=== PATIENT | male | born 1955 ===

== ENCOUNTER 2017-08-31 12:16 | Inpatient (IN) | payer MEDICAID, OTHER ==
[2017-08-31 12:16] VITALS: BMI 31.9
--- NOTE | 2017-08-31 13:30 | C.PDOC ---
History Of Present Illness 62 yo male come in to ED request heroin detox . Pt reports, using heroin daily for " many years'. Otherwise, pt denies any other active physical activity. Pt denies suicidal or homocidal ideation or attempts. Ambulate to Ed for evaluation , not in any apparent distress. Time Seen by Provider: 08/31/17 12:53 Chief Complaint (Nursing): Substance Abuse History Per: Patient Past Medical History Reviewed: Historical Data, Nursing Documentation, Vital Signs Vital Signs: Last Vital Signs Temp 98.2 F 08/31/17 12:35 Pulse 88 08/31/17 16:50 Resp 18 08/31/17 16:50 BP 137/73 08/31/17 16:50 Pulse Ox 99 08/31/17 16:50 - Medical History PMH: Back Problems, CAD, HTN, Hypercholesterolemia, Hyperlipidemia Denies: Diabetes, Hepatitis, HIV, Chronic Kidney Disease, Seizures, Sexually Transmitted Disease Surgical History: Coronary Stent (2008 (had c/o of chest pain)) - [facility] EXERCISE TRMT MUSCULOSK LOW BACK/LE W ASSIST EQUIP (10/25/16) GAIT TRAINING/AMBULAT TREATMENT USING ASSIST EQUIPMENT (10/25/16) HOME MANAGEMENT TREATMENT (10/25/16) WHEELCHAIR MOBILITY TREATMENT USING ASSIST EQUIPMENT (10/25/16) Family History: States: No Known Family Hx - Social History Hx Alcohol Use: No Hx Substance Use: Yes - Immunization History Hx Tetanus Toxoid Vaccination: Yes Hx Influenza Vaccination: Yes Hx Pneumococcal Vaccination: Yes Review Of Systems Except As Marked, All Systems Reviewed And Found Negative. Constitutional: Negative for: Fever, Chills Eyes: Negative for: Vision Change ENT: Negative for: Throat Pain Cardiovascular: Negative for: Chest Pain, Palpitations, Light Headedness Respiratory: Negative for: Cough, Shortness of Breath, Wheezing Gastrointestinal: Negative for: Nausea, Vomiting, Abdominal Pain, Diarrhea Skin: Negative for: Rash Neurological: Negative for: Weakness, Numbness, Altered Mental Status, Dizziness Psych: Negative for: Suicidal ideation Physical Exam - Physical Exam Appears: Well, Non-toxic, No Acute Distress Skin: Normal Color, Warm, Dry, No Rash Head: Atraumatic, Normacephalic Eye(s): bilateral: PERRL Nose: Normal, No Discharge Oral Mucosa: Moist Throat: No Drooling Neck: Trachea Midline, No Midline Cervical Tenderness, No Paracervical Tenderness, No Step Off Deformity, Supple Cardiovascular: Rhythm Regular, No JVD Respiratory: No Decreased Breath Sounds, No Accessory Muscle Use Gastrointestinal/Abdominal: Soft, No Tenderness, No Distention, No Guarding Back: No CVA Tenderness, No Vertebral Tenderness Extremity: Normal ROM, No Pedal Edema, No Deformity, No Swelling Neurological/Psych: Oriented x3, Normal Speech ED Course And Treatment - Laboratory Results Result Diagrams: 08/31/17 14:33 08/31/17 14:33 Lab Interpretation: No Changes Compared To Prior Results O2 Sat by Pulse Oximetry: 95 Pulse Ox Interpretation: Normal Progress Note: Pt was OBS in ED for 4 hours and remained stable. Blood work review and appears baseline. Pt is medically cleared for crisis evaluation. After pt was seen by mat worker Luz , case was discussed with psych-on- call and admission arranged to detox floor with Dx: Opioid dependance, hyperglycemia Hx of NIDDM. Disposition - Disposition Disposition: HOSPITALIZED Disposition Time: 16:32 Condition: STABLE Forms: [facility] (Ukrainian) - Clinical Impression Clinical Impression: DM type 2 (diabetes mellitus, type 2), Opioid dependence
[2017-08-31 14:36] LABS: BASO # 0.1 K/uL (0.0-0.2); BASO % 0.5 % (0.0-2.0); EOS # 0.5 K/uL (0.0-0.7); HEMATOCRIT 39.5 % (35.0-51.0); LYMPH # 1.8 K/uL (1.0-4.3); MEAN CELL VOLUME 83.1 fL (80.0-94.0); MEAN CORPUSCULAR HEMOGLOBIN 27.1 pg (27.0-31.0); MEAN CORPUSCULAR HGB CONC 32.7 g/dL (33.0-37.0); MEAN PLATELET VOLUME 9.4 fL (7.2-11.7); MONO # 0.7 K/uL (0.0-0.8); MONO % 6.7 % (0.0-10.0); RED CELL DISTRIBUTION WIDTH 15.8 % (11.5-14.5); WHITE BLOOD COUNT 10.1 K/uL (4.8-10.8)
[2017-08-31 14:39] LABS: RBC URINE < 1 /hpf (0-3); URINE BILIRUBIN NEGATIVE (NEGATIVE); URINE BLOOD NEGATIVE (NEGATIVE); URINE COLOR Straw (YELLOW); URINE GLUCOSE (UA) 3+ mg/dL (Normal); URINE KETONE NEGATIVE (NEGATIVE); URINE LEUKOCYTE ESTERASE NEG Leu/uL (Negative); URINE PROTEIN NEGATIVE (NEGATIVE); URINE UROBILINOGEN NORMAL mg/dL (0.2-1.0); WBC URINE < 1 /hpf (0-5)
[2017-08-31 14:49] LABS: ALB/GLOB RATIO 1.3 (1.0-2.1); ALCOHOL SERUM < 10 mg/dl (0-10); ALKALINE PHOSPHATASE 110 U/L (38-126); ALT/SGPT 54 U/L (21-72); AST/SGOT 48 U/L (17-59); BILIRUBIN,TOTAL 0.5 mg/dL (0.2-1.3); BLOOD UREA NITROGEN 14 mg/dL (9-20); CALCIUM 8.3 mg/dl (8.6-10.4); CARBON DIOXIDE 29 mmol/L (22-30); CHLORIDE 95 mmol/L (98-107); GFR AFRICAN-AMERICAN > 60; GLUCOSE,RANDOM 305 mg/dL (75-110); POTASSIUM 4.7 mmol/L (3.6-5.2); SODIUM 131 mmol/L (132-148); TOTAL PROTEIN 6.6 g/dL (6.3-8.3)
[2017-08-31] MEDS ORDERED: Lactated Ringer's 1,000 ML IV ONE (14:58)
[2017-08-31] MEDS ORDERED: Lactated Ringer's 0 ML ONE (15:27)
[2017-08-31] MEDS ORDERED: Sodium Chloride 0.9% 1,000 ML ONE (15:36)
[2017-08-31] MEDS ORDERED: Sodium Chloride 0.9% 1,000 ML IV ONE (16:35)
--- NOTE | 2017-08-31 18:48 | PCM.BM ---
<Jerri Gibson - Last Filed: 08/31/17 18:46> Treatment Plan Problems - Problems identified on initial assessmt substance dependence Date Initiated: 08/31/17 Time Initiated: 18:15 Assessment reference: NA Status: Active Treatment assets and liabiliti Patient Assests: cooperative, ADL independent, negotiates basic needs Patient Liabilities: live alone, substance abuse, medical problems - Milieu Protocol Maintain good personal hygiene: daily Encourage regular showers, daily Remind patient to perform daily oral care, daily Assist patient to perform ADL's Conduct patient checks and document Observation sheet: Q15 minutes Maintain personal safety: every shift Educate patient to report safety concerns to staff, every shift Monitor environment for contraband/sharps Medication safety: Monitor for expected outcome, potential side effects: every shift, Assess barriers to learning: every shift, Assess readiness for medication education: every shift <[place] - Last Filed: 09/01/17 17:09> - Diagnosis (1) Opioid use disorder, severe, dependence Status: Acute Interventions: 09/01/17 17:09 * Assess 7x/week regarding severity of withdrawal * Educate regarding risks, benefits, side effects and alternatives of medications * Use Motivational Interviewing for abstinence * Use CBT for relapse prevention * Medication management for withdrawal symptoms * Encourage medication assisted treatment *
--- NOTE | 2017-08-31 23:16 | CP.PCM.CON ---
<Kris Collins - Last Filed: 08/31/17 23:26> History of Present Illness - History of Present Illness History of Present Illness: Medicine consult note for Dr. Bryant Reason for consult: Diabetes This is a 62 year old male with PMHx diabetes, hypertension, CVA in 2016 with no residual symptoms who presented for detox from heroin. Patient consumes 2 bundles of heroin intranasally with last use on Saturday. Patient states that the last time he took his home medications was also on Saturday. Patient is complaining of his withdrawal symptoms including generalized body aches, one episode of loose stools, and rhinorrhea. Patient is very uncomfortable and unable to sleep due to his withdrawal. He received methadone 10 mg earlier this evening. PMHx: DM, HTN, CVA PSHx: Denies Allergies: NKDA Social: Current smoker 10 cigarettes daily, does not remember when he started, but states "for long time". Two bundles of heroin daily intranasally. No other drug history. Home meds: Gabapentin 300 mg PO BID, Metformin 1000 mg PO BID, ASA 81 mg PO daily, Simvastatin 40 mg PO daily, Atenolol 50 mg PO HS PMD: Dr. Orta in [place] Review of Systems - Constitutional Constitutional: Malaise. absent: Chills, Fever - EENT Eyes: absent: Change in Vision Ears: absent: Decreased Hearing Nose/Mouth/Throat: Other (rhinorrhea) - Cardiovascular Cardiovascular: absent: Chest Pain - Respiratory Respiratory: absent: Dyspnea - Gastrointestinal Gastrointestinal: Loose Stools. absent: Abdominal Pain - Genitourinary Genitourinary: absent: Dysuria - Musculoskeletal Musculoskeletal: Back Pain (chronic), Other (generalized body aches) - Neurological Neurological: absent: Weakness - Psychiatric Psychiatric: Anxiety - Endocrine Endocrine: absent: Palpitations Past Patient History - Past Medical History & Family History Past Medical History?: Yes - Past Social History Smoking Status: Heavy Smoker > 10 Cigarettes Daily - CARDIAC Hx Hypercholesterolemia: Yes Hx Hypertension: Yes - PULMONARY Hx Respiratory Disorders: No - NEUROLOGICAL Hx Seizures: No - HEENT Hx HEENT Problems: Yes (c/o of double vision) Other/Comment: - hx. of right sided nystagmus - RENAL Hx Chronic Kidney Disease: No - ENDOCRINE/METABOLIC Hx Diabetes Mellitus Type 2: Yes - HEMATOLOGICAL/ONCOLOGICAL Hx Human Immunodeficiency Virus (HIV): No - INTEGUMENTARY Hx Dermatological Problems: No - MUSCULOSKELETAL/RHEUMATOLOGICAL Hx Falls: Yes - GASTROINTESTINAL Hx Gastrointestinal Disorders: No - GENITOURINARY/GYNECOLOGICAL Hx Sexually Transmitted Disorders: No - PSYCHIATRIC Hx Substance Use: Yes - SURGICAL HISTORY Hx Coronary Stent: Yes (2008 (had c/o of chest pain)) - ANESTHESIA Hx Anesthesia: Yes Hx Anesthesia Reactions: No Hx Malignant Hyperthermia: No Meds Allergies/Adverse Reactions: Allergies Allergy/AdvReac Type Severity Reaction Status Date / Time No Known Allergies Allergy Verified 05/29/16 10:34 - Medications Medications: Current Medications Aspirin (Aspirin Chewable) 81 mg PO DAILY PENNY Atenolol (Tenormin) 50 mg PO HS PENNY Clonidine HCl (Catapres) 0.1 mg PO Q8 PRN PRN Reason: COWS Score More or Equal to 5 Last Admin: 08/31/17 21:46 Dose: 0.1 mg Dicyclomine HCl (Bentyl) 10 mg PO Q6 PRN PRN Reason: Muscle spasm Gabapentin (Neurontin) 300 mg PO BID PENNY Hydroxyzine HCl (Atarax) 25 mg PO Q6 PRN PRN Reason: Anxiety Last Admin: 08/31/17 21:47 Dose: 25 mg Ibuprofen (Motrin Tab) 400 mg PO Q6H PRN PRN Reason: Pain, moderate (4-7) Insulin Human Regular (Novolin R) 0 unit SC ACHS PENNY PRN Reason: Protocol Loperamide HCl (Imodium) 2 mg PO Q8 PRN PRN Reason: Diarrhea Metformin HCl (Glucophage) 1,000 mg PO BID PENNY Ondansetron HCl (Zofran Tab) 4 mg PO Q8 PRN PRN Reason: Nausea/Vomiting Pneumococcal Polyvalent Vaccine (Pneumovax 23 Vaccine) 0.5 ml IM .ONCE ONE Stop: 09/03/17 10:01 Trazodone HCl (Desyrel) 50 mg PO HS PRN PRN Reason: Insomnia Last Admin: 08/31/17 21:46 Dose: 50 mg Physical Exam - Constitutional Appears: No Acute Distress - Head Exam Head Exam: ATRAUMATIC, NORMOCEPHALIC - Eye Exam Eye Exam: EOMI, Normal appearance - ENT Exam ENT Exam: Mucous Membranes Moist - Respiratory Exam Respiratory Exam: Clear to Auscultation Bilateral. absent: Rales, Rhonchi, Wheezes - Cardiovascular Exam Cardiovascular Exam: REGULAR RHYTHM, +S1, +S2 - GI/Abdominal Exam GI & Abdominal Exam: Distended, Hyperactive Bowel Sounds, Soft. absent: Guarding, Tenderness - Extremities Exam Extremities exam: Positive for: pedal pulses present - Neurological Exam Neurological exam: Alert, Oriented x3 - Psychiatric Exam Psychiatric exam: Anxious - Skin Skin Exam: Dry, Intact, Warm Results - Vital Signs Recent Vital Signs: Last Vital Signs Temp 99.0 F 08/31/17 20:20 Pulse 88 08/31/17 20:20 Resp 18 08/31/17 20:20 BP 151/79 H 08/31/17 20:20 Pulse Ox 92 L 08/31/17 20:20 - Labs Result Diagrams: 08/31/17 14:33 08/31/17 14:33 Labs: Laboratory Results - last 24 hr 08/31/17 08/31/17 08/31/17 14:33 14:33 14:33 WBC 10.1 RBC 4.76 Hgb 12.9 Hct 39.5 MCV 83.1 D MCH 27.1 MCHC 32.7 L RDW 15.8 H Plt Count 244 MPV 9.4 Neut % (Auto) 69.8 Lymph % (Auto) 18.0 L [place] % (Auto) 6.7 Eos % (Auto) 5.0 H Baso % (Auto) 0.5 Neut # 7.0 Lymph # 1.8 [place] # 0.7 Eos # 0.5 Baso # 0.1 Sodium 131 L Potassium 4.7 Chloride 95 L Carbon Dioxide 29 Anion Gap 12 BUN 14 Creatinine 0.8 Est GFR ( Amer) > 60 Est GFR (Non-Af Amer) > 60 POC Glucose (mg/dL) Random Glucose 305 H Calcium 8.3 L Total Bilirubin 0.5 AST 48 ALT 54 Alkaline Phosphatase 110 Total Protein 6.6 Albumin 3.7 Globulin 2.9 Albumin/Globulin Ratio 1.3 Urine Color Straw Urine Clarity Clear Urine pH 6.0 Ur Specific [place] 1.012 Urine Protein Negative Urine Glucose (UA) 3+ H Urine Ketones Negative Urine Blood Negative Urine Nitrate Negative Urine Bilirubin Negative Urine Urobilinogen Normal Ur Leukocyte Esterase Neg Urine WBC (Auto) < 1 Urine RBC (Auto) < 1 Urine Opiates Screen Urine Methadone Screen Ur Barbiturates Screen Ur Phencyclidine Scrn Ur Amphetamines Screen U Benzodiazepines Scrn U Oth Cocaine Metabols U Cannabinoids Screen Alcohol, Quantitative < 10 08/31/17 08/31/17 14:33 17:07 WBC RBC Hgb Hct MCV MCH MCHC RDW Plt Count MPV Neut % (Auto) Lymph % (Auto) [place] % (Auto) Eos % (Auto) Baso % (Auto) Neut # Lymph # [place] # Eos # Baso # Sodium Potassium Chloride Carbon Dioxide Anion Gap BUN Creatinine Est GFR ( Amer) Est GFR (Non-Af Amer) POC Glucose (mg/dL) 219 H Random Glucose Calcium Total Bilirubin AST ALT Alkaline Phosphatase Total Protein Albumin Globulin Albumin/Globulin Ratio Urine Color Urine Clarity Urine pH Ur Specific [place] Urine Protein Urine Glucose (UA) Urine Ketones Urine Blood Urine Nitrate Urine Bilirubin Urine Urobilinogen Ur Leukocyte Esterase Urine WBC (Auto) Urine RBC (Auto) Urine Opiates Screen Positive H Urine Methadone Screen Negative Ur Barbiturates Screen Negative Ur Phencyclidine Scrn Negative Ur Amphetamines Screen Negative U Benzodiazepines Scrn Negative U Oth Cocaine Metabols Negative U Cannabinoids Screen Negative Alcohol, Quantitative Assessment & Plan - Assessment and Plan (Free Text) Plan: History of Diabetes continued home Metformin 1000 mg PO BID added medium dose Regular ISS coverage f/u Hemoglobin A1c History of Hypertension continued home Atenolol 50 mg PO HS His pressure may also be elevated due to his withdrawal symptoms and subsequent pain from it. Psychiatry team to manage detox. 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 Annette Collins PGY-1 <Tate Bryant P - Last Filed: 09/01/17 06:14> Meds - Medications Medications: Current Medications Aspirin (Aspirin Chewable) 81 mg PO DAILY PENNY Atenolol (Tenormin) 50 mg PO HS PENNY Clonidine HCl (Catapres) 0.1 mg PO Q8 PRN PRN Reason: COWS Score More or Equal to 5 Last Admin: 08/31/17 21:46 Dose: 0.1 mg Dicyclomine HCl (Bentyl) 10 mg PO Q6 PRN PRN Reason: Muscle spasm Gabapentin (Neurontin) 300 mg PO BID PENNY Hydroxyzine HCl (Atarax) 25 mg PO Q6 PRN PRN Reason: Anxiety Last Admin: 08/31/17 21:47 Dose: 25 mg Ibuprofen (Motrin Tab) 400 mg PO Q6H PRN PRN Reason: Pain, moderate (4-7) Insulin Human Regular (Novolin R) 0 unit SC ACHS PENNY PRN Reason: Protocol Loperamide HCl (Imodium) 2 mg PO Q8 PRN PRN Reason: Diarrhea Metformin HCl (Glucophage) 1,000 mg PO BID PENNY Ondansetron HCl (Zofran Tab) 4 mg PO Q8 PRN PRN Reason: Nausea/Vomiting Pneumococcal Polyvalent Vaccine (Pneumovax 23 Vaccine) 0.5 ml IM .ONCE ONE Stop: 09/03/17 10:01 Rosuvastatin Calcium (Crestor) 10 mg PO HS PENNY Trazodone HCl (Desyrel) 50 mg PO HS PRN PRN Reason: Insomnia Last Admin: 08/31/17 21:46 Dose: 50 mg Results - Vital Signs Recent Vital Signs: Last Vital Signs Temp 99.0 F 08/31/17 20:20 Pulse 88 08/31/17 20:20 Resp 18 08/31/17 20:20 BP 151/79 H 08/31/17 20:20 Pulse Ox 92 L 08/31/17 20:20 - Labs Result Diagrams: 08/31/17 14:33 08/31/17 14:33 Labs: Laboratory Results - last 24 hr 08/31/17 08/31/17 08/31/17 14:33 14:33 14:33 WBC 10.1 RBC 4.76 Hgb 12.9 Hct 39.5 MCV 83.1 D MCH 27.1 MCHC 32.7 L RDW 15.8 H Plt Count 244 MPV 9.4 Neut % (Auto) 69.8 Lymph % (Auto) 18.0 L [place] % (Auto) 6.7 Eos % (Auto) 5.0 H Baso % (Auto) 0.5 Neut # 7.0 Lymph # 1.8 [place] # 0.7 Eos # 0.5 Baso # 0.1 Sodium 131 L Potassium 4.7 Chloride 95 L Carbon Dioxide 29 Anion Gap 12 BUN 14 Creatinine 0.8 Est GFR ( Amer) > 60 Est GFR (Non-Af Amer) > 60 POC Glucose (mg/dL) Random Glucose 305 H Calcium 8.3 L Total Bilirubin 0.5 AST 48 ALT 54 Alkaline Phosphatase 110 Total Protein 6.6 Albumin 3.7 Globulin 2.9 Albumin/Globulin Ratio 1.3 Urine Color Straw Urine Clarity Clear Urine pH 6.0 Ur Specific [place] 1.012 Urine Protein Negative Urine Glucose (UA) 3+ H Urine Ketones Negative Urine Blood Negative Urine Nitrate Negative Urine Bilirubin Negative Urine Urobilinogen Normal Ur Leukocyte Esterase Neg Urine WBC (Auto) < 1 Urine RBC (Auto) < 1 Urine Opiates Screen Urine Methadone Screen Ur Barbiturates Screen Ur Phencyclidine Scrn Ur Amphetamines Screen U Benzodiazepines Scrn U Oth Cocaine Metabols U Cannabinoids Screen Alcohol, Quantitative < 10 08/31/17 08/31/17 14:33 17:07 WBC RBC Hgb Hct MCV MCH MCHC RDW Plt Count MPV Neut % (Auto) Lymph % (Auto) [place] % (Auto) Eos % (Auto) Baso % (Auto) Neut # Lymph # [place] # Eos # Baso # Sodium Potassium Chloride Carbon Dioxide Anion Gap BUN Creatinine Est GFR ( Amer) Est GFR (Non-Af Amer) POC Glucose (mg/dL) 219 H Random Glucose Calcium Total Bilirubin AST ALT Alkaline Phosphatase Total Protein Albumin Globulin Albumin/Globulin Ratio Urine Color Urine Clarity Urine pH Ur Specific [place] Urine Protein Urine Glucose (UA) Urine Ketones Urine Blood Urine Nitrate Urine Bilirubin Urine Urobilinogen Ur Leukocyte Esterase Urine WBC (Auto) Urine RBC (Auto) Urine Opiates Screen Positive H Urine Methadone Screen Negative Ur Barbiturates Screen Negative Ur Phencyclidine Scrn Negative Ur Amphetamines Screen Negative U Benzodiazepines Scrn Negative U Oth Cocaine Metabols Negative U Cannabinoids Screen Negative Alcohol, Quantitative Attending/Attestation - Attestation I have personally seen and examined this patient.: Yes I have fully participated in the care of the patient.: Yes I have reviewed all pertinent clinical information: Yes Notes (Text): Assessment Patient here for detox for heroin withdrawal H/o CAD, CVA without residual H/o NIDDM H/o chronic back pain, djd of spine Plan Continue home bp meds Hemoglobin a1c Insulin sliding scale medium Heroin withdrawal management as per detox
[2017-09-01] MEDS: (Novolin R) Insulin Human Regular 100 units/ml vial SC SCH ×4 (08:10→21:53)
--- NOTE | 2017-09-01 09:44 | PCM.PSYCH ---
Initial Psychiatric Evaluation - Initial Psychiatric Evaluation Type of Admission: Voluntary Legal Status: Capacity Chief Complaint (in patient's own words): "Not well!" History of Present Illness and Precipitating Events: The pt is seen, chart reviewed and case discussed He is a 62 yo LM, single with 3 adult children, lives alone, on SSI He uses 25 bags intranasally "for years" Denies all other drugs and alcohol but smokes 10/d cig This is his first detox he claims, and came here bc his son was here recently and he recommended (of note his son AMA'ed and this patient also threaten AMA this afternoon but then agreed to stay with reassurance) Past psych hx: Denies Family psych hx: So used heroin too Medical hx: DM, HTN and scoliosis Current Medications: Active Medications Generic Name Dose Route Start Last Admin Trade Name Freq PRN Reason Stop Dose Admin Aspirin 81 mg 09/01/17 10:00 Aspirin Chewable PO DAILY PENNY Atenolol 50 mg 09/01/17 10:00 Tenormin PO DAILY PENNY Clonidine HCl 0.1 mg 08/31/17 18:56 08/31/17 21:46 Catapres PO 0.1 mg Q8 PRN Administration COWS Score More or Equal to 5 Dicyclomine HCl 10 mg 08/31/17 18:56 Bentyl PO Q6 PRN Muscle spasm Gabapentin 300 mg 09/01/17 10:00 Neurontin PO BID PENNY Hydroxyzine HCl 25 mg 08/31/17 18:56 08/31/17 21:47 Atarax PO 25 mg Q6 PRN Administration Anxiety Ibuprofen 400 mg 08/31/17 19:10 Motrin Tab PO Q6H PRN Pain, moderate (4-7) Insulin Human Regular 0 unit 09/01/17 07:30 09/01/17 08:10 Novolin R SC 6 unit ACHS PENNY Administration Protocol Loperamide HCl 2 mg 08/31/17 18:56 Imodium PO Q8 PRN Diarrhea Metformin HCl 1,000 mg 09/01/17 10:00 Glucophage PO BID PENNY Methadone HCl 20 mg 09/01/17 10:00 Methadone PO 09/05/17 09:59 Q24H PENNY Taper Ondansetron HCl 4 mg 08/31/17 18:56 Zofran Tab PO Q8 PRN Nausea/Vomiting Pneumococcal Polyvalent Vaccine 0.5 ml 09/03/17 10:00 Pneumovax 23 Vaccine IM 09/03/17 10:01 .ONCE ONE Quetiapine Fumarate 50 mg 09/01/17 22:00 Seroquel PO HS PENNY Rosuvastatin Calcium 10 mg 09/01/17 22:00 Crestor PO HS PENNY Trazodone HCl 100 mg 09/01/17 09:19 Desyrel PO HS PRN Insomnia Past Psychiatric History - Past Psychiatric History Previous Treatment History: None Pertinent Medical Hx (Current Medical&Sleep Prob, Allergies): Allergies Allergy/AdvReac Type Severity Reaction Status Date / Time No Known Allergies Allergy Verified 05/29/16 10:34 Atenolol [Tenormin] 50 mg PO HS 12/12/15 Simvastatin 40 mg PO HS 12/12/15 Aspirin [Ecotrin] 81 mg PO DAILY #30 tabec 11/08/16 Gabapentin [Neurontin] 300 mg PO BID #60 cap 11/08/16 metFORMIN [glucOPHAGE] 500 mg PO DAILY #30 tab 11/08/16 Acetaminophen [Tylenol 325mg tab] 2 tab PO QID PRN #30 tab 08/15/17 Review of Systems - Psychiatric Psychiatric: Abnormal Sleep Pattern, Anxiety, Irritability. absent: Hallucinations, Homicidal Ideation, Suicidal Ideation Mental Status Examination - Personal Presentation Personal Presentation: Looks older than stated age - Affect Affect: Constricted - Motor Activity Motor Activity: Psychomotor Agitation (mild) - Reliability in Providing Information Reliability in Providing Information: Fair - Speech Speech: Organized - Mood Mood: Anxious - Formal Thought Process Formal Thought Process: No Impairment - Cognitive Functions Orientation: Person, Place, Situation, Time Sensorium: Alert Attention/Concentration: Easily distracted Abstract Thinking: [place] Estimate of Intelligence: Below average Judgement: Intact, as evidence by: Insight regarding need for hospitalization Memory: Recent intact, as evidence by: Ability to recall events of the day, Remote intact, as evidenced by: Abilit to recall sig. life events - Risk Risk: Diminished functioning - Strength & Assets Inventory Strength & Assets Inventory: Family support, Cooperative - Limitations Limitations: Living alone DSM 5 DX - DSM 5 DSM 5 Diagnosis: Opioid withdrawal Opioid use d/o - severe - Recommended/Plan of Treatment Treatment Recommendations and Plan of Treatment: Methadone detox As needed medications, incl. ativan Gabapentin for augmentation Attend groups and activities Supportive therapy and psychoeducation NC for abstinence CBT for relapse prevention Encourage MAT Refer to rehab or IOP Attend self-help groups as well 34 min Projected ELOS: 4-5 days Prognosis: good w treatment - Smoking Cessation Smoking Cessation Initiated: Yes
--- NOTE | 2017-09-01 10:37 | CP.PCM.PN ---
<Khushi Perez - Last Filed: 09/01/17 16:34> Subjective - Date & Time of Evaluation Date of Evaluation: 09/01/17 Time of Evaluation: 10:37 - Subjective Subjective: Medicine Progress Note: Patient seen and examined at bedside. Per nursing no acute events overnight. Patient is currently detoxing from heroin. Patient states that he was diagnosed with diabetes last year and is complaint with his medications. States that his blood sugars at home range from 120-300s. At this time he offers no complaints, he reports having increased urinary frequency. Denies headaches, dizziness, cp, palpitations, sob, abdominal pain, changes in bowel habits. Objective - Vital Signs/Intake and Output Vital Signs (last 24 hours): Temp Pulse Resp BP Pulse Ox 98.4 F 71 18 138/83 95 09/01/17 06:21 09/01/17 06:21 09/01/17 06:21 09/01/17 06:21 09/01/17 06:21 - Medications Medications: Current Medications Aspirin (Aspirin Chewable) 81 mg PO DAILY [facility] Last Admin: 09/01/17 10:12 Dose: 81 mg Atenolol (Tenormin) 50 mg PO DAILY [facility] Last Admin: 09/01/17 10:13 Dose: 50 mg Clonidine HCl (Catapres) 0.1 mg PO Q8 PRN PRN Reason: COWS Score More or Equal to 5 Last Admin: 08/31/17 21:46 Dose: 0.1 mg Dicyclomine HCl (Bentyl) 10 mg PO Q6 PRN PRN Reason: Muscle spasm Gabapentin (Neurontin) 300 mg PO BID [facility] Last Admin: 09/01/17 10:13 Dose: 300 mg Hydroxyzine HCl (Atarax) 25 mg PO Q6 PRN PRN Reason: Anxiety Last Admin: 08/31/17 21:47 Dose: 25 mg Ibuprofen (Motrin Tab) 400 mg PO Q6H PRN PRN Reason: Pain, moderate (4-7) Insulin Human Regular (Novolin R) 0 unit SC ACHS [facility] PRN Reason: Protocol Last Admin: 09/01/17 08:10 Dose: 6 unit Loperamide HCl (Imodium) 2 mg PO Q8 PRN PRN Reason: Diarrhea Metformin HCl (Glucophage) 1,000 mg PO BID [facility] Last Admin: 09/01/17 10:12 Dose: 1,000 mg Methadone HCl (Methadone) 20 mg PO Q24H [facility] PRN Reason: Taper Stop: 09/05/17 09:59 Last Admin: 09/01/17 10:12 Dose: 20 mg Ondansetron HCl (Zofran Tab) 4 mg PO Q8 PRN PRN Reason: Nausea/Vomiting Pneumococcal Polyvalent Vaccine (Pneumovax 23 Vaccine) 0.5 ml IM .ONCE ONE Stop: 09/03/17 10:01 Quetiapine Fumarate (Seroquel) 50 mg PO HS [facility] Rosuvastatin Calcium (Crestor) 10 mg PO HS [facility] Trazodone HCl (Desyrel) 100 mg PO HS PRN PRN Reason: Insomnia - Labs Labs: 08/31/17 14:33 08/31/17 14:33 - Constitutional Appears: Well, No Acute Distress - Head Exam Head Exam: ATRAUMATIC, NORMAL INSPECTION - Eye Exam Eye Exam: EOMI, Normal appearance - ENT Exam ENT Exam: Mucous Membranes Moist - Respiratory Exam Respiratory Exam: Clear to Ausculation Bilateral, NORMAL BREATHING PATTERN. absent: Rales, Rhonchi, Wheezes - Cardiovascular Exam Cardiovascular Exam: REGULAR RHYTHM, +S1, +S2. absent: Murmur - GI/Abdominal Exam GI & Abdominal Exam: Soft. absent: Firm, Guarding, Rigid, Tenderness Additional comments: Obese abdomen - Rectal Exam Rectal Exam: Deferred - Extremities Exam Extremities Exam: Normal Inspection. absent: Calf Tenderness - Neurological Exam Neurological Exam: Alert, Awake, CN II-XII Intact, Oriented x3 - Psychiatric Exam Psychiatric exam: Normal Affect, Normal Mood - Skin Skin Exam: Dry, Normal Color, Warm Assessment and Plan - Assessment and Plan (Free Text) Assessment: 1. History of Uncontrolled Diabetes Mellitus * Stable, afebrile * Hemoglobin A1C in 10/2016 was 6.8 * UA showing +3 glucose * Accuchecks today range 219-307 * F/U repeat Hemoglobin A1c * Continued Metformin 1000 mg PO BID * Medium dose ISS, accuchecks ACHS * Salad Chef referral * Ekg Manager Referral * Lisinopril 5mg daily started for renal protection and history of hypertension 2. History of Hypertension * Will discontinue home medication, Atenolol 50mg daily * Start Lisinopril 5mg daily * Continue to monitor 3. History of CVA * Continue ASA 81 mg PO daily * Crestor 10 mg PO HS 4. 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 Opoid abuse/Heroin Withdrawal * Patient is detox of heroin withdrawal * EKG showed QTc interval 416, within normal range * Patient on Methadone taper for detox, Clonidine prn * Will repeat EKG in AM to reassess QT interval * Management per psychiatry <Joy Riley V - Last Filed: 09/02/17 23:16> Objective - Vital Signs/Intake and Output Vital Signs (last 24 hours): Temp Pulse Resp BP Pulse Ox 99.0 F 112 H 18 121/83 98 09/02/17 20:08 09/02/17 20:08 09/02/17 20:08 09/02/17 20:08 09/02/17 20:08 - Medications Medications: Current Medications Aspirin (Aspirin Chewable) 81 mg PO DAILY [facility] Last Admin: 09/02/17 09:43 Dose: 81 mg Clonidine HCl (Catapres) 0.1 mg PO Q8 PRN PRN Reason: COWS Score More or Equal to 5 Last Admin: 08/31/17 21:46 Dose: 0.1 mg Dicyclomine HCl (Bentyl) 10 mg PO Q6 PRN PRN Reason: Muscle spasm Gabapentin (Neurontin) 300 mg PO BID [facility] Last Admin: 09/02/17 17:02 Dose: 300 mg Hydroxyzine HCl (Atarax) 25 mg PO Q6 PRN PRN Reason: Anxiety Last Admin: 08/31/17 21:47 Dose: 25 mg Ibuprofen (Motrin Tab) 400 mg PO Q6H PRN PRN Reason: Pain, moderate (4-7) Insulin Human Regular (Novolin R) 0 unit SC ACHS [facility] PRN Reason: Protocol Last Admin: 09/02/17 21:07 Dose: Not Given Lisinopril (Zestril) 5 mg PO DAILY [facility] Last Admin: 09/02/17 09:43 Dose: 5 mg Loperamide HCl (Imodium) 2 mg PO Q8 PRN PRN Reason: Diarrhea Lorazepam (Ativan) 1 mg PO Q6H PRN PRN Reason: severe anxiety Last Admin: 09/02/17 17:02 Dose: 1 mg Metformin HCl (Glucophage) 1,000 mg PO BID [facility] Last Admin: 09/02/17 17:02 Dose: 1,000 mg Methadone HCl (Methadone) 15 mg PO Q24H [facility] PRN Reason: Taper Stop: 09/05/17 09:59 Last Admin: 09/02/17 09:44 Dose: 15 mg Ondansetron HCl (Zofran Tab) 4 mg PO Q8 PRN PRN Reason: Nausea/Vomiting Pneumococcal Polyvalent Vaccine (Pneumovax 23 Vaccine) 0.5 ml IM .ONCE ONE Stop: 09/03/17 10:01 Quetiapine Fumarate (Seroquel) 100 mg PO HS [facility] Last Admin: 09/02/17 21:08 Dose: 100 mg Rosuvastatin Calcium (Crestor) 10 mg PO HS [facility] Last Admin: 09/02/17 21:08 Dose: 10 mg Trazodone HCl (Desyrel) 100 mg PO HS PRN PRN Reason: Insomnia Last Admin: 09/01/17 21:50 Dose: 100 mg - Labs Labs: 09/02/17 07:18 09/02/17 07:18 Attending/Attestation - Attestation I have personally seen and examined this patient.: Yes I have fully participated in the care of the patient.: Yes I have reviewed all pertinent clinical information, including history, physical exam and plan: Yes
[2017-09-02 07:42] LABS: BASO # 0.1 K/uL (0.0-0.2); BASO % 0.6 % (0.0-2.0); EOS # 0.4 K/uL (0.0-0.7); EOS % 3.4 % (0.0-4.0); HEMATOCRIT 42.2 % (35.0-51.0); LYMPH # 2.5 K/uL (1.0-4.3); LYMPH % 20.7 % (20.0-40.0); MEAN CELL VOLUME 82.4 fL (80.0-94.0); MEAN CORPUSCULAR HEMOGLOBIN 26.6 pg (27.0-31.0); MEAN CORPUSCULAR HGB CONC 32.3 g/dL (33.0-37.0); MEAN PLATELET VOLUME 9.7 fL (7.2-11.7); MONO # 0.7 K/uL (0.0-0.8); MONO % 6.3 % (0.0-10.0); RED CELL DISTRIBUTION WIDTH 15.4 % (11.5-14.5); WHITE BLOOD COUNT 11.9 K/uL (4.8-10.8)
[2017-09-02] MEDS: (Novolin R) Insulin Human Regular 100 units/ml vial SC SCH ×4 (07:42→21:07)
[2017-09-02 08:06] LABS: ALB/GLOB RATIO 1.3 (1.0-2.1); ALKALINE PHOSPHATASE 108 U/L (38-126); ALT/SGPT 59 U/L (21-72); AST/SGOT 79 U/L (17-59); BILIRUBIN,TOTAL 0.5 mg/dL (0.2-1.3); BLOOD UREA NITROGEN 14 mg/dL (9-20); CALCIUM 8.7 mg/dl (8.6-10.4); CARBON DIOXIDE 24 mmol/L (22-30); CHLORIDE 102 mmol/L (98-107); CHOLESTEROL 134 mg/dL (0-199); GFR AFRICAN-AMERICAN > 60; GLUCOSE,RANDOM 288 mg/dL (75-110); POTASSIUM 4.5 mmol/L (3.6-5.2); SODIUM 134 mmol/L (132-148); TOTAL PROTEIN 6.8 g/dL (6.3-8.3)
--- NOTE | 2017-09-02 09:21 | CP.PCM.PN ---
Subjective - Date & Time of Evaluation Date of Evaluation: 09/02/17 Time of Evaluation: 07:00 - Subjective Subjective: Medicine progress note for Dr. Riley Patient seen and examined. Patient reports no acute complaints today and states that his withdrawal symptoms are currently under control as of this morning. Objective - Vital Signs/Intake and Output Vital Signs (last 24 hours): Temp Pulse Resp BP Pulse Ox 97.7 F 87 18 170/95 H 95 09/02/17 08:43 09/02/17 08:43 09/02/17 08:43 09/02/17 08:43 09/02/17 08:43 - Medications Medications: Current Medications Aspirin (Aspirin Chewable) 81 mg PO DAILY [facility] Last Admin: 09/01/17 10:12 Dose: 81 mg Clonidine HCl (Catapres) 0.1 mg PO Q8 PRN PRN Reason: COWS Score More or Equal to 5 Last Admin: 08/31/17 21:46 Dose: 0.1 mg Dicyclomine HCl (Bentyl) 10 mg PO Q6 PRN PRN Reason: Muscle spasm Gabapentin (Neurontin) 300 mg PO BID [facility] Last Admin: 09/01/17 17:03 Dose: 300 mg Hydroxyzine HCl (Atarax) 25 mg PO Q6 PRN PRN Reason: Anxiety Last Admin: 08/31/17 21:47 Dose: 25 mg Ibuprofen (Motrin Tab) 400 mg PO Q6H PRN PRN Reason: Pain, moderate (4-7) Insulin Human Regular (Novolin R) 0 unit SC ACHS [facility] PRN Reason: Protocol Last Admin: 09/02/17 07:42 Dose: 4 unit Lisinopril (Zestril) 5 mg PO DAILY [facility] Loperamide HCl (Imodium) 2 mg PO Q8 PRN PRN Reason: Diarrhea Lorazepam (Ativan) 1 mg PO Q6H PRN PRN Reason: severe anxiety Metformin HCl (Glucophage) 1,000 mg PO BID [facility] Last Admin: 09/01/17 17:03 Dose: 1,000 mg Methadone HCl (Methadone) 20 mg PO Q24H [facility] PRN Reason: Taper Stop: 09/05/17 09:59 Last Admin: 09/01/17 10:12 Dose: 20 mg Ondansetron HCl (Zofran Tab) 4 mg PO Q8 PRN PRN Reason: Nausea/Vomiting Pneumococcal Polyvalent Vaccine (Pneumovax 23 Vaccine) 0.5 ml IM .ONCE ONE Stop: 09/03/17 10:01 Quetiapine Fumarate (Seroquel) 100 mg PO HS [facility] Last Admin: 09/01/17 21:52 Dose: 100 mg Rosuvastatin Calcium (Crestor) 10 mg PO HS [facility] Last Admin: 09/01/17 22:43 Dose: 10 mg Trazodone HCl (Desyrel) 100 mg PO HS PRN PRN Reason: Insomnia Last Admin: 09/01/17 21:50 Dose: 100 mg - Labs Labs: 09/02/17 07:18 09/02/17 07:18 - Constitutional Appears: No Acute Distress - Head Exam Head Exam: ATRAUMATIC, NORMOCEPHALIC - Eye Exam Eye Exam: EOMI, Normal appearance - ENT Exam ENT Exam: Mucous Membranes Moist - Respiratory Exam Respiratory Exam: Clear to Ausculation Bilateral, NORMAL BREATHING PATTERN. absent: Rales, Rhonchi, Wheezes - Cardiovascular Exam Cardiovascular Exam: REGULAR RHYTHM, +S1, +S2 - GI/Abdominal Exam GI & Abdominal Exam: Soft, Hyperactive Bowel Sounds. absent: Firm, Guarding, Tenderness Additional comments: obese habitus - Extremities Exam Extremities Exam: Normal Inspection - Neurological Exam Neurological Exam: Alert, Awake, Oriented x3 - Psychiatric Exam Psychiatric exam: Normal Affect, Normal Mood - Skin Skin Exam: Dry, Warm Assessment and Plan - Assessment and Plan (Free Text) Plan: 1. History of Uncontrolled Diabetes Mellitus * Stable, afebrile * Hemoglobin A1C in 10/2016 was 6.8 * UA showing +3 glucose * Accuchecks today range 219-307 * F/U repeat Hemoglobin A1c * Continued Metformin 1000 mg PO BID * Medium dose ISS, accuchecks ACHS * Esthetician Makeup Artist referral * Marker Assembler Referral * Lisinopril 5mg daily started for renal protection and history of hypertension 2. History of Hypertension * Will discontinue home medication, Atenolol 50mg daily * Start Lisinopril 5mg daily * Continue to monitor 3. History of CVA * Continue ASA 81 mg PO daily * Crestor 10 mg PO HS 4. 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 Opoid abuse/Heroin Withdrawal * Patient is detox of heroin withdrawal * EKG showed QTc interval 416, within normal range * Follow up EKG 09/02 showed QTc of 447 * Will repeat EKG on 09/03 to assess QTc as patient is taking methadone * Patient on Methadone for detox, Clonidine prn * Management per psychiatry Case DW Dr. Osvaldo Collins PGY1
[2017-09-02 12:36] LABS: MAGNESIUM 1.7 mg/dL (1.6-2.3)
--- NOTE | 2017-09-02 13:51 | PCM.PYCHPN ---
Psychiatric Progress Note - Psychiatric Progress Note Patient seen today, length of contact: 15 minutes Patient Chief Complaint: "I still have withdrawal symptoms" Problems Identified/Issues Discussed: The pt is seen, chart reviewed, case discussed with staff. patient stated he did have the withdrawal symptoms including nausea vomiting, diarrhea, shakiness , hot and cold sweats. he reported that he had opioids craving. The pt is compliant with medications and reports no side-effects. Symptoms are improving but needs more time to stabilize. After care discussed, support and psychoeducation given. Medical Problems: hypertension Diagnostic Results: QTC is 460 DSM 5 Symptoms Update: opioid use disorder severe, dependence, withdrawal symptoms Medication Change: Yes (methadone taper) Medical Record Reviewed: Yes (yes) Consults ordered or reviewed: medical team was consulted and appreciated that their recommendation Mental Status Examination - Cognitive Function Orientation: Person, Place, Situation, Time Memory: Intact Attention: WNL Concentration: WNL Association: WNL Fund of Knowledge: [facility] Decription of patient's judgement and insights: /Limited/limited as he wanted to be discharge Addtional comments: he needed redirection, to follow the directions - Mood Mood: Anxious - Affect Affect: Constricted - Speech Speech: Appropriate - Formal Thought Process Formal Thought Process: No Impairment Psychotic Thoughts and Behaviors: denied - Suicidal Ideation Suicidal Ideation: No Plan: denied - Homicidal Ideation Homicidal Ideation: No Plan: no intent or plan Goal/Treatment Plan - Goal/Treatment Plan Need for Continued Stay: Discharge may exacerbated symptoms, Severe functional impairment Progress Toward Problem(s) and Goals/Treatment Plan: give today extra dose of methadone 5 mg. Will monitor opioid withdrawal symptoms Supportive therapy was provided Therapy in [facility] medical team recommendations Estimated Date of D/C: 09/05/17 - Smoking Cessation Smoking Cessation Initiated: Yes
[2017-09-03 06:11] VITALS: O2SAT 95
[2017-09-03] MEDS: (Novolin R) Insulin Human Regular 100 units/ml vial SC SCH ×2 (08:27→12:56)
[2017-09-03] MEDS ORDERED: Pneumococcal 23-Valent Vaccine IM ONE (10:00)
[2017-09-03] MEDS ORDERED: Influenza Vaccine 60 mcg/0.5 mL SYR (4YR UP) IM ONE (10:00)
[2017-09-03 11:05] VITALS: BP 132/89; PULSE 90; RESP 19; TEMP 99
--- NOTE | 2017-09-03 16:56 | PCM.PYCHDC ---
Mental Status Examination - Mental Status Examination Orientation: Person, Place, Situation, Time Memory: Intact Mood: Neutral Affect: Other (Appropriate) Speech: Appropriate Attention: WNL Concentration: WNL Association: WNL Fund of Knowledge: WNL Formal Thought Process: No Impairment Description of patient's judgement and insight: Poor Psychotic Thoughts and Behaviors: None Suicidal Ideation: No Current Homicidal Ideation?: No Discharge Summary - Discharge Note Reason for Hospitalization: Opiate use disorder Laboratory Data: Abnormal Lab Results 09/02/17 09/02/17 09/02/17 01:24 07:15 11:41 POC Glucose (mg/dL) 263 H 266 H 364 H 09/02/17 09/02/17 16:15 21:06 POC Glucose (mg/dL) 335 H 194 H Consultations:: List each consultation separately and include: 1. Reason for request. 2. Findings. 3. Follow-up Summary of Hospital Course include:: 1. Description of specific treatment plan utilized for patients during their course of treatmen. 2. Summarize the time- course for resolution of acute symptoms and/or regressed behaviors. 3. Describe issues identified and worked on during hospitalization. 4. Describe medication utilized. 5. Describe medical problems identified and treated. 6. Reassessment of suicide risk Summary of Hospital Course: The pt is seen, chart reviewed and case discussed He is a 62 yo LM, single with 3 adult children, lives alone, on SSI He uses 25 bags intranasally "for years" Denies all other drugs and alcohol but smokes 10/d cig This is his first detox he claims, and came here bc his son was here recently and he recommended (of note his son AMA'ed and this patient also threaten AMA this afternoon but then agreed to stay with reassurance) Past psych hx: Denies Family psych hx: So used heroin too Medical hx: DM, HTN and scoliosis During his stay in the hospital patient was treated with methadone, gabapentin, Seroquel and other when necessary medications. Patient was also seen by medicine for syncope. Patient was in the middle of his detox when today patient decided to leave the hospital AGAINST MEDICAL ADVICE without completion of the detox. Patient was educated to complete the detox. Patient refused. Patient was educated that in case of any adverse event including relapse, overdose, decompensation or even of the patient, patient will be responsible for his actions. Patient understood and agreed with the above but still left the unit AGAINST MEDICAL ADVICE. At the time of evaluation and discharge, patient was awake alert oriented 3, had no delusions, no auditory or visual hallucinations, no suicidal ideations or homicidal ideations. Patient was discharged in a stable condition. - Final Diagnosis (DSM 5) Condition upon Discharge: STABLE Disposition: AGAINST MEDICAL ADVICE - Smoking Cessation Smoking Cessation Medication prescribed: No - Antipsychotic Medications Pt discharged on 2 or more routine antipsychotic medications: No
--- NOTE | 2017-09-03 22:25 | CARD ---
APPROVED REPORT EKG Measurement Heart [id number] <Conclusion> Normal sinus rhythm Septal infarct, age undetermined Possible Lateral infarct, age undetermined Abnormal ECG
--- NOTE | 2017-09-03 22:25 | CARD ---
APPROVED REPORT EKG Measurement Heart [id number] <Conclusion> Normal sinus rhythm Septal infarct, age undetermined Possible Lateral infarct, age undetermined Abnormal ECG
== END 2017-09-03 11:50 | disposition left against medical advice (07) | DRG 743 ==
LOC: C.ER 12:16 → C.9E 16:32 → C.7D 17:41
PROVIDERS: ADMIT Psychiatry & Neurology Psychiatry; ATTEND Psychiatry & Neurology Psychiatry
DX: F11.23 Opioid dependence with withdrawal (principal); M41.9 Scoliosis, unspecified; E11.9 Type 2 diabetes mellitus without complications; I25.10 Atherosclerotic heart disease of native coronary artery without angina pectoris; Z86.73 Personal history of transient ischemic attack (TIA), and cerebral infarction without residual deficits; Z79.84 Long term (current) use of oral hypoglycemic drugs; I10 Essential (primary) hypertension; G89.29 Other chronic pain; M54.9 Dorsalgia, unspecified; M19.90 Unspecified osteoarthritis, unspecified site

== ENCOUNTER 2017-12-17 10:10 | Day surgery (SDC) | payer OTHER ==
[2017-12-16 14:26] VITALS: BMI 30.7
[2017-12-17] MEDS ORDERED: Propofol 10 mg/ml Inj (20 ML) ONE (12:12)
--- NOTE | 2017-12-17 12:17 | CP.SDSHP ---
Same Day Surgery H & P - History Proposed Procedure: COLONSCOPY Pre-Op Diagnosis: SEE NOTES - Previous Medical/Surgical History Cardiac: Hypertension, ASHD/CAD, Previous CO Neuro: TIA/CVA, Other Pain: 2.Mild Pain - Allergies Allergies: Allergies No Known Allergies Allergy (Verified 12/17/17 10:43) - Physical Exam General Appearance: N Vital Signs: Vital Signs 12/17/17 12/17/17 10:45 11:15 Temperature 97.5 F L Pulse Rate 64 64 Respiratory 19 Rate Blood Pressure 122/78 O2 Sat by Pulse 95 Oximetry Mental Status: Alert & Oriented x3 Neuro: Other Heart: Other Lungs: WNL GI: WNL - {Optional Preform as Required} Breast: WNL Rectal: Other Integument: WNL : WNL Ortho: Other ENT: WNL - Impression Pt. Evaluated Today:Candidate for Anesthesia & Procedure: Yes - Date & Time Time: 12:17 Short Stay Discharge - Short Stay Discharge Admitting Diagnosis/Reason for Visit: ENCOUNTER FOR SCREENING FOR MALIGNANT NEOPLASM OF Disposition: HOME/ ROUTINE
[2017-12-17] MEDS ORDERED: Belladonna-Phenobarbital PO STA (12:18)
[2017-12-17] MEDS ORDERED: Lidocaine Hydrochloride 5 ML INJ ONE (12:36)
[2017-12-17 13:23] VITALS: TEMP 97
[2017-12-17 13:30] VITALS: BP 122/75; PULSE 65; RESP 18; O2SAT 98
== END 2017-12-17 13:50 | disposition home or self-care (01) ==
LOC: C.ENDO 10:10
PROVIDERS: ATTEND Specialist
DX: Z12.11 Encounter for screening for malignant neoplasm of colon (principal); D12.4 Benign neoplasm of descending colon; I25.10 Atherosclerotic heart disease of native coronary artery without angina pectoris; I25.2 Old myocardial infarction; I10 Essential (primary) hypertension; Z86.73 Personal history of transient ischemic attack (TIA), and cerebral infarction without residual deficits
CPT/HCPCS: 45380; 82948; 88305; J2704

== ENCOUNTER 2018-10-28 10:22 | Outpatient (CLI) | payer OTHER | END 2018-10-28 10:23 | disposition home or self-care (01) | LOC: C.CARD 10:22 ==